=== PATIENT | male | born 1990 | race Caucasian/White ===

== ENCOUNTER 2019-05-28 14:22 | Emergency (ER) | payer MEDICAID, OTHER ==
[~2019-05-28] VITALS: Ht 182.9 cm; Wt 80.0 kg
[2019-05-28 14:58] VITALS: BP 117/73
[2019-05-28 15:44] LABS: CLARITY,URINE CLOUDY (Clear); COLOR,URINE YELLOW (Yellow); GLUCOSE, URINE NEGATIVE (Neg); KETONES,URINE NEGATIVE (Neg); LEUKOCYTE ESTERASE ,URINE MODERATE (Neg); NITRITES, URINE NEGATIVE (Neg); OCCULT BLOOD,URINE TRACE-INTACT (Neg); PROTEIN,URINE 30 mg/dl (Neg)
[2019-05-28 15:49] LABS: UA COLLECTION TYPE CLN CATCH MIDSTREAM
[2019-05-28 15:50] LABS: BACTERIA,URINE 2+ /HPF (Neg); MUCUS STRANDS NONE SEEN /LPF (Neg); RBC,URINE 20-50 /HPF (0-2); SQUAMOUS EPITHELIAL CELL,UR FEW /LPF (FEW); WBC,URINE TNTC /HPF (0-4)
[2019-05-28] MEDS ORDERED: azithromycin 250mg tablet PO ONE (16:20)
[2019-05-28] MEDS ORDERED: CefTRIAXone 1000mg IM Kit (w/lidocaine diluent) IM ONE (16:20)
[2019-05-28] MEDS ORDERED: NORMAL SALINE IV ONE (17:00)
[2019-05-28] MEDS ORDERED: GENTAMICIN IV ONE (17:00)
--- NOTE | 2019-05-28 17:25 | NUR ---
pt needs to leave, refusing to wait for medication needed, pt is aware he needs to have treatment, he verbalized understanding risks of not having medication "I will return tomorrow to have shot", Chavo hawkins
[2019-05-30 06:50] LABS: RPR Non Reactive (Non Reactive)
== END 2019-05-28 17:31 | disposition home or self-care (01) ==
LOC: ER 14:23
DX: N34.2 Other urethritis (principal); A64 Unspecified sexually transmitted disease; Z59.0 Homelessness; Z56.0 Unemployment, unspecified; Z88.1 Allergy status to other antibiotic agents; Z88.8 Allergy status to other drugs, medicaments and biological substances; Z91.012 Allergy to eggs
CPT/HCPCS: 36415; 81001; 86592; 87088; 87491; 99284; J1580

== ENCOUNTER 2019-06-15 02:02 | Emergency (ER) | payer MEDICAID, OTHER ==
[~2019-06-15] VITALS: Ht 182.9 cm; Wt 79.5 kg
[2019-06-15 02:10] VITALS: BP 134/79
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
== END 2019-06-15 02:55 | disposition left against medical advice (07) ==
LOC: ER 02:02
DX: E86.0 Dehydration (principal); R45.1 Restlessness and agitation; Z59.0 Homelessness; Z56.0 Unemployment, unspecified; Z88.1 Allergy status to other antibiotic agents; Z88.8 Allergy status to other drugs, medicaments and biological substances; Z91.012 Allergy to eggs
CPT/HCPCS: 99281